=== PATIENT | female | born 1950 | race Caucasian/White ===

== ENCOUNTER → 2018-06-12 16:20 | Outpatient (CLI) | payer MEDICARE, BC, SELFPAY ==
--- NOTE | 2018-06-12 16:25 | RAD_ITS ---
STUDY: X-RAY - LUMBAR SPINE REASON FOR EXAM: Female, 67 years old. Low back pain with right leg numbness, no known injury TECHNIQUE: 5 view(s) of the lumbar spine were obtained. COMPARISON: None FINDINGS: Normal lumbar lordosis. There is no substantial scoliosis. There is a grade 2 anterolisthesis of L5 relative to S1. I cannot determine with certainty on this study the presence or absence of associated spondylolysis. There is endplate spondylosis of L4-S1. There is severe narrowing of the L4-5 and L5-S1 disc spaces, and moderately severe narrowing of the L2-3 and L3-4 disc spaces. The soft tissue structures are unremarkable. RAD/L/S Spine Min 4 Views IMPRESSION: Grade 2 anterolisthesis of L5 relative to S1. Other degenerative changes as detailed above. Electronically Signed: Boni Flores MD at 21:45 EDT , Service support ,
== END ==
PROVIDERS: Family Provider Family Medicine; PCP Family Medicine; Visit Provider Family Medicine
DX: M43.17 Spondylolisthesis, lumbosacral region (principal); M48.07 Spinal stenosis, lumbosacral region
CPT/HCPCS: 72110

== ENCOUNTER 2018-08-02 09:30 | Outpatient (RCR) | payer MEDICARE, BC, SELFPAY ==
--- NOTE | 2018-07-07 10:10 | HP.PTEVAL_ITS ---
Patient's Visit Information HILDA ALMEIDA is a 67 year old F referred to Physical Therapy by Janell Tamez MD with a diagnosis of R leg numbness. Date of Evaluation: 07/07/18 Physical Therapist: Elia Becker PT, - Visit Plan Frequency: 2x /Week Duration: 3 Weeks Plan: REIL, core strengthening, postural edu, and HEP - Subjective Subjective: Pt reports she has had R LE numbness for a couple years. Pt reports her pain has progressively worsened over the last 8-9 mos. Pt reports she did have xrays, which revealed bulging disks in her LB. Pt reports if she sits for any period of time, she has a difficult time with trying to bear nila on her R LE. Pt reports she has difficulty with traveling because her R LE becomes so sore. Pt reports she uses an inversion table and walks a lot secondary to her pain. Pt reports she has been treated by a chiropractor over the years and has been told she has a weak core. 2/10 at rest, 5/10 at worst - Pain R leg numbness Pain Intensity (Out of 10): 2 Pain Intensity Range: 5 - Objective Neuro: B LE sensation is WNL to light touch. B patellar reflex= 1/3. MMT: B LE' s are grossly 5/5 throughout. L/S ROM: Pt is minimally limited with L/S ext. All other movements WNL. Repeated movements: RFIS 10x2 increased LBP, NE after wards. FREEMAN NE. REIL makes pt feel better overall. flexibility: Mild limitations with piriformis. All others WNL - Goals Goal 1:: Decrease R LE radiculopathy x 50% to aid with increasing harsh for sitting Goal Time Frame: 2-4 Weeks Goal 2:: Increase core stability x 1 grade to aid with decreasing LBP Goal Time Frame: 2-4 Weeks Goal 3:: Pt will both verbally and physically display proper posture to aid with preventing future episodes of LBP Goal Time Frame: 2-4 Weeks Goal 4:: I with HEP Goal Time Frame: 2-4 Weeks - Rehabilitation Potential Physical Therapy Diagnosis: Pt has LBP, R LE radiculopathy, and core weakness secondary to L/S disk derrangement Rehabilitation Potential: Good - Anticipated Interventions Patient/Client Instruction: Educate patient on: Condition, Plan of Care For the Purpose of:: To improve self management Therapeutic Exercise to Include: Strength training, Endurance training, Body mechanics, Postural training, Flexibilty training, Dynamic Lumbar Stabilization For the Purpose of:: To decrease pain, To increase ROM, To improve muscle performance and motor function Thank you for the opportunity to evaluate your patient. For Medicare and Medicare HMO plans, please review the plan of care and approve it. It will need to be FAXED BACK to us at [phone] for Medicare purposes. Please let me know if there are questions or concerns regarding this plan of care. Physician Signature: Date:
--- NOTE | 2018-07-24 10:20 | HP.PTREVAL_ITS ---
Janell Tamez MD, It has been my pleasure to treat HILDA ALMEIDA over the last 5 visits for R leg numbness. Please see the progress note below for an update on the physical therapy plan of care! Subjective: PATIENT REPORTS SHE HAS TRIED [facility]GA 2X'S SINCE LAST VISIT AND SHE HAD PAIN EVEN WITH THE IVONNE POSE. SHE REPORTS SHE CAN TOLERATE HER LOW BACK PAIN BUT HER RIGHT LE IS THE MAIN PROBLEM. CURRENT SX'S: ALEXANDREA LOW BACK, RIGHT THIGH AND RIGHT LEG. PAIN, NUMBNESS AND TINGLING IN RIGHT THIGH AND LEG. RISING FROM SITTING AND INITIATING GAIT ARE A PROBLEM. OCCASSIONALLY MUSCLE CRAMPS IN THE NIGHT IN LLE BUT NO OTHER LLE SX'S. PATIENT REPORTS SHE REALLY ISN 'T ANY BETTER SINCE STARTING PT. 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 I THINK THE PUSH UPS MADE MY BACK HURT. HAS BEEN TOLD NOT TO BEND OVER AT THE WAIST BUT HAS NOT BEEN COMPLIANT. RIGHT LE SX'S HAVE BEEN CONSTANT TO SOME DEGREE FOR ABOUT 6 MONTHS NOW. TRIED ACCUPUNCTURE TOO BUT UNSURE OF EFFECT. Objective/Function: UPON EXAM, PATIENT HAS VERY ARTHRITIC HANDS AND ALSO REPORTS HER KNEES ARE ARTHRITIC. NO ACUTE TENDERNESS. LUMBAR MVMT LOSS: FLEX - NIL, EXT - MOD, ALEXANDREA SG - MODERATE. PATIENT C/O INCREASE LBP WITH ALEXANDREA SG TESTING. POSITIVE RIGHT LE DURAL SIGN. ALEXANDREA LE STRENGTH 5/5 WITH MMT'ING EXCEPT HIPS GRADED 4/5. DECREASED RIGHT LATERAL THIGH LIGHT TOUCH COMPARED TO LEFT. PATIENT DEMONSTRATED AND COMMUNICATED A GOOD UNDERSTANDING OF ALL INSTRUCTIONS AFTER GIVEN BUT REINFORCEMENT NEEDED. Plan Plan: US TO LUMBAR REGION, POSTURE CORRECTION/STRENGTHENING, INSTRUCTION IN APPROPRIATE BODY MECHANICS AND ACTIVITY MODIFICATIONS. DLS WITH A NEUTRAL SPINE. HOLD LUMBAR EXTENSION FOR NOW. ALEXANDREA LE ROM, STRETCHING AND STRENGTHENING. HEP INSTRUCTION. Goals Goal 1:: DECREASE C/O BACK AND LE SX'S. Goal Time Frame: 4-6 Weeks Goal 2:: IMPROVE RISING FROM SITTING, SITTING, LIFTING, HOUSEWORK, YARD WORK AND RECREATIONAL FUNCTION Goal Time Frame: 4-6 Weeks Goal 3:: INSTRUCT IN PROPHYLAXIS Goal Time Frame: 4-6 Weeks Goal 4:: I with HEP Goal Time Frame: 2-4 Weeks Anticipated Interventions Patient/Client Instruction: Educate patient on: Condition, Plan of Care For the Purpose of:: To improve self management Therapeutic Exercise to Include: Strength training, Endurance training, Body mechanics, Postural training, Flexibilty training, Dynamic Lumbar Stabilization For the Purpose of:: To decrease pain, To increase ROM, To improve muscle performance and motor function Please do not hesitate to contact me at [phone] by phone or Fax: if you have questions or concerns regarding this new plan of care! Sincerely, Charmaine Clemens
--- NOTE | 2018-09-25 10:04 | HP.PT.NRP ---
HP - Discharge Summary (1) - Patient Information HILDA ALMEIDA was seen in my office for initial evaluation on 07/07/18. The following Plan of Care was established for this patient: Initial Frequency: 2x /Week Initial Duration: 3 Weeks - Anticipated Interventions Patient/Client Instruction: Educate patient on: Condition, Plan of Care For the Purpose of:: To improve self management Therapeutic Exercise to Include: Strength training, Endurance training, Body mechanics, Postural training, Flexibilty training, Dynamic Lumbar Stabilization For the Purpose of:: To decrease pain, To increase ROM, To improve muscle performance and motor function This patient was last seen in our office . Pertinent comments regarding their Physical therapy will appear below: Pt was treated for 6 PT visits for her R leg numbness through the date of 08/02/18. Pt has not returned through todays date, and is therefore discontinued at this time. At this point I will be discontinuing this patient from physical therapy. I would be happy to see this patient again in the future if found appropriate by the physician. Thank you! Elia Becker, PT,
== END 2018-08-02 19:00 | disposition home or self-care (01) ==
LOC: PT 09:30
PROVIDERS: Family Provider Family Medicine; PCP Family Medicine; Visit Provider Family Medicine
DX: R20.0 Anesthesia of skin (principal)
CPT/HCPCS: 97035; 97110; 97140; 97162; 97164; 97530; G8978; G8979

== ENCOUNTER → 2018-08-04 15:53 | Outpatient (CLI) | payer MEDICARE, BC, SELFPAY | PROVIDERS: Family Provider Family Medicine; PCP Family Medicine; Visit Provider Family Medicine | DX: M43.17 Spondylolisthesis, lumbosacral region (principal); M48.07 Spinal stenosis, lumbosacral region | CPT/HCPCS: 72148 ==

== ENCOUNTER → 2018-11-01 09:19 | Outpatient (CLI) | payer MEDICARE, BC, SELFPAY ==
[2018-11-01 10:49] LABS: AST(SGOT) 14 U/L (15-37); Alanine Aminotransfer ALT/SGPT 25 U/L (13-56); CPK Total, Creatine Kinase 63 U/L (26-192); Cholesterol 170 mg/dL (200); High Density Lipoprotein 88 mg/dL; Triglycerides 67 mg/dL; Very Low Density Lipoprotein 13 mg/dL (5-40)
== END ==
PROVIDERS: Family Provider Family Medicine; PCP Family Medicine; Referring Provider Nurse Practitioner Adult Health; Visit Provider Nurse Practitioner Adult Health
DX: E78.5 Hyperlipidemia, unspecified (principal)
CPT/HCPCS: 36415; 80061; 82550; 84450; 84460

== ENCOUNTER → 2018-11-09 08:19 | Outpatient (CLI) | payer MEDICARE, BC, SELFPAY ==
--- NOTE | 2018-11-09 08:25 | BD_ITS ---
STUDY: DUAL ENERGY X-RAY ABSORPTIOMETRY / DXA REASON FOR EXAM: Female, 67 years old. The patient is postmenopausal. History of breast cancer. Loss of height. TECHNIQUE: Bone Mineral Density (BMD) measurements of lumbar spine and bilateral hips were obtained. COMPARISON: None. FINDINGS: Lumbar Spine (L1-L4): g/cm2 (1.048) / T-score (-1.0) / Z-score (0.6) Findings are suggestive of normal bone density with a low fracture risk. Left Femur Total: g/cm2 (0.906) / T-score (-0.8) / Z-score (0.4) Left Femoral Neck: g/cm2 (0.865) / T-score (-1.2) / Z-score (0.3) Right Femur Total: g/cm2 (0.921) / T-score (-0.7) / Z-score (0.5) Right Femoral Neck: g/cm2 (0.849) / T-score (-1.4) / Z-score (0.1) BD/Dexa Bone Density Study IMPRESSION: The patient is considered osteopenic as outlined below according to World [employer] Organization (WHO) criteria with a low fracture risk. Reference Information: The T-score is the number of standard deviations above or below the standard which is normal for young adults at their peak bone mineral density. The World Health Organization (WHO) interprets the T-scores as follows: Above -1 Normal bone density Between -1 and -2.5 Osteopenia Equal to / or below -2.5 Osteoporosis As a practical clinical guideline, osteopenia may be graded as follows: Mild -1 through -1.5 Moderate -1.6 through -2.0 Severe -2.1 through -2.4 The Z-score is the number of standard deviations above or below age-matched controls. A Z-score of less than -1.5 would be considered abnormal. References: 1. NIH Osteoporosis and Related Bone Diseases http://www.osteo.org 2. International Society for Clinical Densitometry http://www.iscd.org 3. National Osteoporosis Foundation http://www.nof.org Electronically Signed: Wm Vital MD at 10:04 EST Tel [phone], Service support ,
--- OUTSIDE RECORDS SUMMARY | 2018-12-26 01:20 | XMS RPT_ITS ---
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 Stroke: Father, severe stroke age 67, Blood Clot: None Heart attack: Father age 57 ; brother age 48 Thyroid Nodule or Goiter: None FAMILY HISTORY Problem Relation Age of Onset - Breast Cancer Mother age 76 thyroid lives in assisted living age 95 - Ischemic Heart Disease Father smoker age 88 - Stroke Father - Breast Cancer Maternal Grandmother - Heart Paternal Grandfather - Ischemic Heart Disease Brother age 48 - Heart Paternal Uncle - healthy [OTHER] Son ADD - healthy [OTHER] Daughter - healthy [OTHER] Son ADD - Breast Cancer Maternal Aunt - Breast Cancer Maternal Aunt - Heart Brother MEDICATIONS: COMPOUNDED PRESCRIPTION Use 1 Ryan vaginally once daily. DHEA OVULE 1.0% FOR NIGHTLY ADMINISTRATION VAGINALLY GET AT PHARMACY levothyroxine (SYNTHROID) 50 mcg tablet Take 1 tablet by mouth every morning. on an empty stomach. Wait one hour before eating or taking other medications. NICOLAS ROOT, BULK, MISC once daily. CALCIUM CITRATE ORAL Take by mouth once daily. Cholecalciferol, Vitamin D3, 2,000 unit cap Take 1 capsule by mouth once daily. MULTIVITAMIN W-MINERALS/LUTEIN (CENTRUM SILVER ORAL) Take by mouth once daily. aspirin, enteric coated (ECOTRIN LOW STRENGTH) 81 mg EC tablet Take 1 tablet by mouth once daily. amphet asp/amphet/d-amphet(ADDERALL 20 MG TAB) Take one(1) tablet three times daily. ALLERGIES: ALLERGIES No Known Allergies REVIEW OF SYSTEMS: The patient specifically denies unintentional weight loss, insomnia, hot flashes, night sweats, abnormal swelling in the arms or legs, chest pain, shortness of breath, cough, heartburn, urinary incontinence, vaginal dryness, decreased libido, unusual bony pains or severe headaches. 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 Trying accupuncture to see if helps. PHYSICAL EXAM: LMP 07/23/2008 General: well-nourished, healthy, thin, female, alert and oriented x 3, calm Skin: warm, dry, skin color, texture, turgor normal Head/Eyes: normocephalic, atraumatic and anicteric Breasts and Regional Lymph Nodes: The patient was examined in the upright and supine positions. There is no concerning supraclavicular, infraclavicular or axillary lymphadenopathy. The breasts are symmetrical in appearance without visible skin or nipple changes. There are no dominant breast masses or nipple discharge bilaterally. The breasts were non-tender. There was mild to moderate fibrocystic change throughout. IMAGING: Bilateral screening 3D mammograms performed today in the breast center were negative for malignancy. The breasts are heterogeneously dense which limits the sensitivity of mammography. Assessment IMPRESSION/PLAN: Hilda Mares is a 67 year old year old female with Bilateral Fibrocystic Change, Dense Breasts and Increased Risk for Breast Cancer due to LCIS/ALH There is no evidence of malignancy. The patient was reassured as to the benign nature of her clinical and mammographic findings. She was notified of the 3D results via My Chart. Her risk based on her ALH/LCIS history if estimated to be 30% over a 25 yr period. She is now 10 yrs out and took Tamoxifen for 4 yr 4 months. She knows that taking the Tamoxifen did help to reduce her risk for ER+ breast cancer but perhaps not the full 86% reduction it would have if she took for the a full 5 yrs. I have ordered a BMD test and we can discuss extending her breast cancer risk reduction with AI at the next visit (which if taken, she would tke for 3 yrs). At this point, she is on Medicare which does not cover screening breast MRI and going forward, MRI will be reserved in situations it is clinically indicated. She is comfortable with having annual exams with 3D mammograms at this time. Genetics referral made: no, Reason: BRCA negative, all her FH of breast cancer was in post menopausal women. Chemoprevention discussion: as above The patient is advised to exercise regularly, achieve/maintain ideal body weight, and to limit alcohol consumption to less than 7 drinks weekly for breast cancer risk reduction and overall health. She will contact [facility]YSICAL TESTING SUPERVISOR for her appt to have refill of the DHEA compounding supp. She will return in one year for annual exam and 3D mammogram. She will call me in the interim should she have any questions or concerns. Total face to face time was 30 minutes with >50% spent on counseling the patient or coordinating her care. Anil Dao, MSN SKEIN MERCERIZING MACHINE OPERATOR.[facility] Medical Breast Specialist June 15, 2018 CC: Janell Tamez MD ([facility]) [address] [facility] [address] [place] [address] LEATHAOV Observed: 06/15/2018 Status: COMPLETED Source: [place] 10:30 AM [facility] REPOSITORY Office Visit ([facility]) HILDA MARES ([id number]) 1950 F Date Time Provider Department 06/15/18 10:30 AM ANIL DAO (STOGY MAKER) [facility] During your visit today, we recorded the following information about you: Vignesh Espitia Ma 06/15/2018 11:37 AM Addendum General Breast Health Recommendations A healthy body helps promote healthy breasts. If you smoke, please consider a smoking cessation program. If you do not exercise, please consider starting an exercise program if you are able to, even if it is just walking in your neighborhood. Research shows that obesity, especially post- menopausal obesity, is a risk factor for breast cancer. Obtaining calcium in your diet or taking a calcium supplement that contains vitamin D is good for your bones. There is evolving evidence that Vitamin D supplementation may also help to decrease breast cancer risk. If you are post-menopausal and are bothered by hot flashes and still have a uterus, combined estrogen-progesterone preparations can increase your risk of breast cancer if taken for longer than five years. Alcohol is also an under-recognized risk factor. Every drink you have daily increases your breast cancer risk by 10%. Mammograms save lives. Have an annual mammogram annually beginning at age 40. Continue annual mammograms as long as you remain in good health. Breast self-exam, performed on day 7 of your menstrual cycle, can also be very helpful. Know your breasts and report changes to your health care provider or breast specialist. Clinical breast exams by your primary care provider or breast specialist are recommended annually every 1-3 years for women over the age of 20 and annually after the age of 40. Increased frequency of the clinical exam may be recommended for women at increased risk of breast cancer. Risk factors for breast cancer: Being a woman Family history of breast cancer Early menarche (onset of menses) prior to age 15 Nulliparity (never had children) First child after age 32 Late menopause (stopping of periods) after age 57 History of breast biopsy that showed atypical cells (ADH, ALH, LCIS, FEA) Presence of a genetic mutation (BRCA1, BRCA2, PTEN, P53, CDH1) History of chest wall irradiation (such as with Hodgkin's Lymphoma) prior to age 30 Personal history of breast cancer Post-menopausal Obesity Combined hormone therapy (estrogen and progesterone) for greater than 5 years Alcohol consumption of greater than 7 alcohol-containing drinks per week Breast density If you have a family history of breast or ovarian cancer, review this with your primary care provider or breast specialist to see if a referral for genetic counseling is recommended. 5-10% of breast cancers and up to 15% of ovarian cancers are linked to a genetic mutation. Signs of hereditary breast cancer syndrome include breast cancer that occurs under the age of 50, ovarian cancer at any age, male breast cancer, multiple family members affected with breast cancer, and a history of Ashkenazi Restoration ancestry. Breast pain is very common and usually is not a sign of cancer, but should be evaluated by a breast specialist. For comfort, simply reducing caffeine (coffee, tea, chocolate, energy drinks, sodas) in your diet can provide relief. A properly fitted bra can also be helpful in reducing breast pain. If those two measures do not provide relief, taking Evening [place] Oil 1000mg capsules twice a day for a short period of time (three to four months) may be helpful. Many women wonder about their breast density. Dense breast tissue is, in and of itself, a relatively common condition which could hide abnormalities in a screening mammogram. This information is not provided to cause undue concern; rather, it is to raise your awareness and promote discussion with your health care provider regarding the presence of dense breast tissue in addition to other risk factors. If you would like to compliment one of our caregivers you encountered today, you may do so at [email or web address]. Thank you ! BONE MINERAL DENSITY PATIENT INSTRUCTIONS Bone mineral density testing measures the amount of calcium in certain parts of your bones. This information determines how strong your bones are. The test is used to detect osteoporosis, a disease in which the bone's mineral content and density are low, increasing a person's risk of fractures. The lumbar spine (lower back) and the hip are the skeletal sites usually examined. For the test, remember that: 1. You cannot take this test if you are . 2. Eat a normal diet on the day of the test. 3. Take your medications as you normally would. 4. DO NOT take calcium supplements (such as Tums) for 24 hours before the test. 5. On the day of the test, leave valuables (jewelry or credit cards) at home. 6. The test should be performed prior to oral, rectal or IV contrast studies, or at least 7 days after any of these studies. For the test, you may be asked to wear a hospital gown. You will lie on your back, on a padded table, in a comfortable position. Generally, you can resume your usual activities immediately. Vignesh Espitia Ma 06/15/2018 11:04 AM Signed Last mammogram on: 06/16/2017 Left breast Results: see report Is the patient active on Mdundohart Yes Electronically Signed By: Vignesh Espitia Ma In Department: BREAST CENTER REVIEW OF PATIENT HISTORY: Obstetric History T3 L3 SAB0 TAB0 Ectopic0 Multiple0 Live Births0 Comment: menarche 15 FFTP 33 breastfed hx of LCIS was on WILHELM FAMILY HISTORY Problem Relation Age of Onset - Breast Cancer Mother age 76 thyroid lives in assisted living age 95 - Ischemic Heart Disease Father smoker age 88 - Stroke Father - Breast Cancer Maternal Grandmother - Heart Paternal Grandfather - Ischemic Heart Disease Brother age 48 - Heart Paternal Uncle - healthy [OTHER] Son ADD - healthy [OTHER] Daughter - healthy [OTHER] Son ADD - Breast Cancer Maternal Aunt - Breast Cancer Maternal Aunt - Heart Brother PAST MEDICAL HISTORY Diagnosis Date - ADD (attention deficit disorder) on adderal - BRCA negative 2007 - Breast neoplasm, Tis (LCIS) 2006 pre-cancerous (not cancer) high risk lesion took WILHELM [id number] - Female stress incontinence 09/2016 discussed 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 AMA - hx of low vitamin D 01/2013 19 needs tx recheck 04/2013 nl - LCIS Breast cancer- LCIS- bilateral - menopause age 57 2007 - menopause age 57 06/2008 - Papanicolaou smear of cervix with atypical squamous cells of undetermined significance (ASC-US) 09/2012 - PMS (premenstrual syndrome) in her 40s placed on celexa - Postmenopausal atrophic vaginitis 01/2013 offered vaginal DHEA - Postmenopausal bleeding 11/2007 simple endometrial hyperplasia with polyp 04/2013 ebx proliferative PAST SURGICAL HISTORY Procedure Laterality Date - BX BREAST PERC VACUUM/ROTN 03/20/08 U/S mammotome UIQ left breast bx - DELIVERY ONLY 1990 , low cervical 10 lb son - COLONOSCOP W/ OR W/O BRSH SPEC 2010 Colonoscopy - HYSTEROSCOPY, DIAGNOSTIC (SEPARATE 12/12/2012 Hysteroscopy - HYSTEROSCOPY, DIAGNOSTIC (SEPARATE 07/[address] Estrella CRAVEN - PAST SURGICAL HISTORY OF wisdom teeth - US BREAST NEEDLE CORE BIOPSY LT 05/09/09 U/S needle core upper mid left breast Social History Marital status: Spouse name: Maria Dolores Years of education: 16 Number of children: 3 Occupational History Occupation Employer Comment [employer] Social History Main Topics Smoking status: Former Smoker Packs/day: 0.50 Years: 5.00 Smokeless tobacco: Never Used Alcohol use: Yes 3.0 oz/week Glasses of Wine (5oz): 2 per week Comment: 1 glass/day Drug use: No Sexual activity: Yes Partners with: Male Comment: Postmenopausal Anil Dao, MSN SKEIN MERCERIZING MACHINE OPERATOR.WATER POLLUTION CONTROL TECHNICIAN 06/15/2018 12:59 PM Signed MEDICAL BREAST PATIENT NAME: Hilda Mares June 15, 2018 HISTORY of PRESENT ILLNESS: 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 I last saw her in 06/13. Her 3D screening mammogram showed a possible asymmetry in the left breast at 12:00 anterior depth. She returned for diagnostic imaging 06/13 including diagnostic VALERIO and the possible asymmetry was no longer seen. Annual screening mammogram was recommended. MRI in 05/14 was negative. Prior to the MRI she was feeling some intermittent left sided breast pain x 2 mo which lessened after finding out the MRI was negative. The patient denies any new breast masses, pain, skin changes, or nipple discharge. Vitamin D 25 Hydroxy (ng/mL) Date Value 05/24/2013 78.4 She takes Vitamin D 2000 units daily and calcium. BMD: years ago OSH in [place] PERSONAL BREAST HISTORY: Past breast history (prior to this encounter) is as follows: In 02/02 she had a left stereotactic biopsy which showed LCIS. No additional surgery was performed. In 2008, at , patient underwent another LEFT breast needle biopsy revealing LCIS and underwent LEFT breast wire localized excisional biopsy in 2009 of [address] Goel at . Pathology reports multiple foci of ALH and LCIS in one specimen and fibroadenoma in the other. She took Tamoxifen from 06/19/08 till 10/24/12 (Dr. Agrawal) for the hx of high risk lesions and it was stopped when she developed the PMB. ? She developed PMB in 10/09. 10/09 EMB at [facility] which was benign. 12/10 had hysteroscopy for more PMB and which showed two uterine polyps with atypia. 02/07 she started progesterone and DHEA per Dr. Barth in 02/07. 05/10 EMB ([facility]) showed focally crowded endometrial glands with focal squamous morule; origin from endometrial hyperplasia could not be excluded. 08/10 and 03/11 she had two more EMB (Dr. De La Rosa) which were both benign. Patient had considered a KLEVER but did not schedule. She went to her local PHYSICAL TESTING SUPERVISOR in [place] 04/12 for PAP which she reports was fine. She saw PHYSICAL TESTING SUPERVISOR (Caryl Bains in 05/14). She has not had any return of the uterine bleeding. Breast biopsy: Yes, as above Breast cysts: No Breast surgery: Yes, as above Breast cancer: No CANCER SURVEILLANCE: Mammograms: 06/13 as above Breast MRI: 05/14 negative [place]oscopy[place]/11 [place] ([facility] per her report RISK FACTORS FOR BREAST CANCER: Age at the onset of menses: 16 years of age. P: 3 Age at the of first child: 33 years of age. She breast fed for 24 months total Age at menopause: 59 years of age. Post-menopausal hormone therapy: No; DHEA vaginal supp only (Caryl Bains) She has an intact uterus and ovaries She is postmenopausal and does not use control. 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 AMA - hx of low vitamin D 01/2013 19 needs tx recheck 04/2013 nl - LCIS Breast cancer- LCIS- bilateral - menopause age 57 2007 - menopause age 57 06/2008 - Papanicolaou smear of cervix with atypical squamous cells of undetermined significance (ASC-US) 09/2012 - PMS (premenstrual syndrome) in her 40s placed on celexa - Postmenopausal atrophic vaginitis 01/2013 offered vaginal DHEA - Postmenopausal bleeding 11/2007 simple endometrial hyperplasia with polyp 04/2013 ebx proliferative Patient specifically denies history of: DVT, PE, Migraine headaches, Abnormal uterine biopsies , Osteopenia and Osteoporosis. PAST SURGICAL HISTORY: PAST SURGICAL HISTORY Procedure Laterality Date - BX BREAST PERC VACUUM/ROTN 03/20/08 U/S mammotome UIQ left breast bx - DELIVERY ONLY 1990 , low cervical 10 lb son - COLONOSCOP W/ OR W/O BRS SPEC 2010 Colonoscopy - HYSTEROSCOPY, DIAGNOSTIC (SEPARATE 12/12/2012 Hysteroscopy - HYSTEROSCOPY, DIAGNOSTIC (SEPARATE 07/[address] Estrella CRAVEN - PAST SURGICAL HISTORY OF wisdom teeth - BREAST NEEDLE CORE BIOPSY LT 05/09/09 U/S needle core upper mid left breast SOCIAL HISTORY: Social History Substance Use Topics - Smoking status: Former Smoker Packs/day: 0.50 Years: 5.00 - Smokeless tobacco: Never Used - Alcohol use 3.0 oz/week 2 Glasses of Wine (5oz) per week Comment: 1 glass/day Caffeine intake: 1-2 c coffee / day - no diet soda Exercise: 30 minutes/5 times a week or more FAMILY HISTORY: Family history of breast cancer: Her mother had breast cancer in her 70s, had bilateral mastectomies and is alive with dementia at age 97 in assisted living. Two maternal aunts had breast cancer in their 70s as well. MGM was age 60. Family history of ovarian cancer: None Number of sisters: 1 Number of maternal aunts: 2 Number of paternal aunts: 0 Ashkenazi Ancestry: no Has Patient had Genetic Testing? Yes , Type of testing BRCA negative in 11/04 Have any Family Members had Genetic Testing? No Other Cancer: None - There is no family history of prostate, colon, uterine, pancreatic, gastric, brain, renal cell or thyroid cancer. - There is no family history of melanoma, sarcoma or leukemia. Osteoporosis: None Stroke: Father, severe stroke age 67, Blood Clot: None Heart attack: Father age 57 ; brother age 48 Thyroid Nodule or Goiter: None FAMILY HISTORY Problem Relation Age of Onset - Breast Cancer Mother age 76 thyroid lives in assisted living age 95 - Ischemic Heart Disease Father smoker age 88 - Stroke Father - Breast Cancer Maternal Grandmother - Heart Paternal Grandfather - Ischemic Heart Disease Brother age 48 - Heart Paternal Uncle - healthy [OTHER] Son ADD - healthy [OTHER] Daughter - healthy [OTHER] Son ADD - Breast Cancer Maternal Aunt - Breast Cancer Maternal Aunt - Heart Brother MEDICATIONS: COMPOUNDED PRESCRIPTION Use 1 Ryan vaginally once daily. DHEA OVULE 1.0% FOR NIGHTLY ADMINISTRATION VAGINALLY GET AT PHARMACY levothyroxine (SYNTHROID) 50 mcg tablet Take 1 tablet by mouth every morning. on an empty stomach. Wait one hour before eating or taking other medications. NICOLAS ROOT, BULK, MISC once daily. CALCIUM CITRATE ORAL Take by mouth once daily. Cholecalciferol, Vitamin D3, 2,000 unit cap Take 1 capsule by mouth once daily. MULTIVITAMIN W-MINERALS/LUTEIN (CENTRUM SILVER ORAL) Take by mouth once daily. aspirin, enteric coated (ECOTRIN LOW STRENGTH) 81 mg EC tablet Take 1 tablet by mouth once daily. amphet asp/amphet/d-amphet(ADDERALL 20 MG TAB) Take one(1) tablet three times daily. ALLERGIES: ALLERGIES No Known Allergies REVIEW OF SYSTEMS: The patient specifically denies unintentional weight loss, insomnia, hot flashes, night sweats, abnormal swelling in the arms or legs, chest pain, shortness of breath, cough, heartburn, urinary incontinence, vaginal dryness, decreased libido, unusual bony pains or severe headaches. 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 Trying accupuncture to see if helps. PHYSICAL EXAM: LMP 07/23/2008 General: well-nourished, healthy, thin, female, alert and oriented x 3, calm Skin: warm, dry, skin color, texture, turgor normal Head/Eyes: normocephalic, atraumatic and anicteric Breasts and Regional Lymph Nodes: The patient was examined in the upright and supine positions. There is no concerning supraclavicular, infraclavicular or axillary lymphadenopathy. The breasts are symmetrical in appearance without visible skin or nipple changes. There are no dominant breast masses or nipple discharge bilaterally. The breasts were non-tender. There was mild to moderate fibrocystic change throughout. IMAGING: Bilateral screening 3D mammograms performed today in the breast center were negative for malignancy. The breasts are heterogeneously dense which limits the sensitivity of mammography. Assessment IMPRESSION/PLAN: Hilda Mares is a 67 year old year old female with Bilateral Fibrocystic Change, Dense Breasts and Increased Risk for Breast Cancer due to LCIS/ALH There is no evidence of malignancy. The patient was reassured as to the benign nature of her clinical and mammographic findings. She was notified of the 3D results via My Chart. Her risk based on her ALH/LCIS history if estimated to be 30% over a 25 yr period. She is now 10 yrs out and took Tamoxifen for 4 yr 4 months. She knows that taking the Tamoxifen did help to reduce her risk for ER+ breast cancer but perhaps not the full 86% reduction it would have if she took for the a full 5 yrs. I have ordered a BMD test and we can discuss extending her breast cancer risk reduction with AI at the next visit (which if taken, she would tke for 3 yrs). At this point, she is on Medicare which does not cover screening breast MRI and going forward, MRI will be reserved in situations it is clinically indicated. She is comfortable with having annual exams with 3D mammograms at this time. Genetics referral made: no, Reason: BRCA negative, all her FH of breast cancer was in post menopausal women. Chemoprevention discussion: as above The patient is advised to exercise regularly, achieve/maintain ideal body weight, and to limit alcohol consumption to less than 7 drinks weekly for breast cancer risk reduction and overall health. She will contact PHYSICAL TESTING SUPERVISOR for her appt to have refill of the DHEA compounding supp. She will return in one year for annual exam and 3D mammogram. She will call me in the interim should she have any questions or concerns. Total face to face time was 30 minutes with >50% spent on counseling the patient or coordinating her care. Anil Dao, MSN SKEIN MERCERIZING MACHINE OPERATOR.[facility] Medical Breast Specialist June 15, 2018 CC: Janell Tamez MD ([facility]) [address] [facility] [place] [id number] Referring Provider: SELF [[id number]] Allergies As of Date: 06/15/2018 (No Known Allergies) Date Reviewed: 06/15/2018 Reviewed by: Anil Doty ([place]) Joe - Fully Assessed Reason for Visit: Yearly Exam With Mammogram [188] Primary Visit Diagnosis:Atypical lobular hyperplasia of breast [N60.99] Other Visit Diagnoses:Lobular carcinoma in situ (LCIS) of left breast [D05.02] Bilateral fibrocystic breast changes [N60.11, N60.12] Family history of breast cancer in mother [Z80.3] hx of low vitamin D [E55.9] BRCA negative [Z13.71] Encounter for screening for osteoporosis [Z13.820] Disorder of bone [M89.9] Encounter for screening mammogram for breast cancer [Z12.31] Order(s):DXA-AXIAL SKELETON [8593839] Order #: [id number] FUTURE LAISHA SCREENING W VALERIO [4502210] Order #: [id number] FUTURE Prescriptions as of 06/15/2018 Sig: COMPOUNDED PRESCRIPTION Use 1 Ryan vaginally once d* LEVOTHYROXINE 50 MCG TABLET Take 1 tablet by mouth every * NICOLAS ROOT (BULK) MISC once daily. CALCIUM CITRATE ORAL Take by mouth once daily. CHOLECALCIFEROL (VITAMIN D3) * Take 1 capsule by mouth once * CENTRUM SILVER ORAL Take by mouth once daily. ASPIRIN 81 MG TABLET,DELAYED * Take 1 tablet by mouth once d* * ADDERALL 20 MG TABLET Take one(1) tablet three time* Problem List As Of Date 06/15/2018 Noted Resolved Abnormal mammogram, unspecified [R92.8] INVALID FOR*02/20/2013 LCIS [D05.90] INVALID FOR*09/28/2013 Simple endometrial hyperplasia [N85.01] INVALID FOR*09/28/2013 More... Papanicolaou smear of cervix with atypical squa* 10/19/2016 Postmenopausal atrophic vaginitis [N95.2] Postmenopausal bleeding [N95.0] 05/24/2013 hx of LCIS [C50.919] 08/30/2014 More... 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 If you smoke, please consider a smoking cessation program. If you do not exercise, please consider starting an exercise program if you are able to, even if it is just walking in your neighborhood. Research shows that obesity, especially post-menopausal obesity, is a risk factor for breast cancer. Obtaining calcium in your diet or taking a calcium supplement that contains vitamin D is good for your bones. There is evolving evidence that Vitamin D supplementation may also help to decrease breast cancer risk. If you are post-menopausal and are bothered by hot flashes and still have a uterus, combined estrogen-progesterone preparations can increase your risk of breast cancer if taken for longer than five years. Alcohol is also an under-recognized risk factor. Every drink you have daily increases your breast cancer risk by 10%. Mammograms save lives. Have an annual mammogram annually beginning at age 40. Continue annual mammograms as long as you remain in good health. Breast self-exam, performed on day 7 of your menstrual cycle, can also be very helpful. Know your breasts and report changes to your health care provider or breast specialist. Clinical breast exams by your primary care provider or breast specialist are recommended annually every 1-3 years for women over the age of 20 and annually after the age of 40. Increased frequency of the clinical exam may be recommended for women at increased risk of breast cancer. Risk factors for breast cancer: Being a woman Family history of breast cancer Early menarche (onset of menses) prior to age 15 Nulliparity (never had children) First child after age 32 Late menopause (stopping of periods) after age 57 History of breast biopsy that showed atypical cells (ADH, ALH, LCIS, FEA) Presence of a genetic mutation (BRCA1, BRCA2, PTEN, P53, CDH1) History of chest wall irradiation (such as with Hodgkin's Lymphoma) prior to age 30 Personal history of breast cancer Post-menopausal Obesity Combined hormone therapy (estrogen and progesterone) for greater than 5 years Alcohol consumption of greater than 7 alcohol-containing drinks per week Breast density If you have a family history of breast or ovarian cancer, review this with your primary care provider or breast specialist to see if a referral for genetic counseling is recommended. 5-10% of breast cancers and up to 15% of ovarian cancers are linked to a genetic mutation. Signs of hereditary breast cancer syndrome include breast cancer that occurs under the age of 50, ovarian cancer at any age, male breast cancer, multiple family members affected with breast cancer, and a history of Ashkenazi Restoration ancestry. Breast pain is very common and usually is not a sign of cancer, but should be evaluated by a breast specialist. For comfort, simply reducing caffeine (coffee, tea, chocolate, energy drinks, sodas) in your diet can provide relief. A properly fitted bra can also be helpful in reducing breast pain. If those two measures do not provide relief, taking Evening [place] Oil 1000mg capsules twice a day for a short period of time (three to four months) may be helpful. Many women wonder about their breast density. Dense breast tissue is, in and of itself, a relatively common condition which could hide abnormalities in a screening mammogram. This information is not provided to cause undue concern; rather, it is to raise your awareness and promote discussion with your health care provider regarding the presence of dense breast tissue in addition to other risk factors. If you would like to compliment one of our caregivers you encountered today, you may do so at [email or web address]. Thank you ! BONE MINERAL DENSITY PATIENT INSTRUCTIONS Bone mineral density testing measures the amount of calcium in certain parts of your bones. This information determines how strong your bones are. The test is used to detect osteoporosis, a disease in which the bone's mineral content and density are low, increasing a person's risk of fractures. The lumbar spine (lower back) and the hip are the skeletal sites usually examined. For the test, remember that: 1. You cannot take this test if you are . 2. Eat a normal diet on the day of the test. 3. Take your medications as you normally would. 4. DO NOT take calcium supplements (such as Tums) for 24 hours before the test. 5. On the day of the test, leave valuables (jewelry or credit cards) at home. 6. The test should be performed prior to oral, rectal or IV contrast studies, or at least 7 days after any of these studies. For the test, you may be asked to wear a hospital gown. You will lie on your back, on a padded table, in a comfortable position. Generally, you can resume your usual activities immediately. Visit Notes: >> Vignesh Espitia Ma Melany Jun 15, 2018 11:02 AM Status: Signed Last mammogram on: 06/16/2017 Left breast Results: see report Is the patient active on MyChart Yes Electronically Signed By: Vignesh Espitia Ma In Department: BREAST CENTER REVIEW OF PATIENT HISTORY: Obstetric History T3 L3 SAB0 TAB0 Ectopic0 Multiple0 Live Births0 Comment: menarche 15 FFTP 31 breastfed hx of LCIS was on [facility] FAMILY HISTORY Problem Relation Age of Onset - Breast Cancer Mother age 76 thyroid lives in assisted living age 95 - Ischemic Heart Disease Father smoker age 88 - Stroke Father - Breast Cancer Maternal Grandmother - Heart Paternal Grandfather - Ischemic Heart Disease Brother age 48 - Heart Paternal Uncle - healthy [OTHER] Son ADD - healthy [OTHER] Daughter - healthy [OTHER] Son ADD - Breast Cancer Maternal Aunt - Breast Cancer Maternal Aunt - Heart Brother PAST MEDICAL HISTORY Diagnosis Date - ADD (attention deficit disorder) on adderal - BRCA negative 2007 - Breast neoplasm, Tis (LCIS) 2005 pre-cancerous (not cancer) high risk lesion took WILHELM [id number] - Female stress incontinence 09/2016 discussed 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 AMA - hx of low vitamin D 01/2013 19 needs tx recheck 04/2013 nl - LCIS Breast cancer- LCIS- bilateral - menopause age 57 2007 - menopause age 57 06/2008 - Papanicolaou smear of cervix with atypical squamous cells of undetermined significance (ASC-US) 09/2012 - PMS (premenstrual syndrome) in her 40s placed on celexa - Postmenopausal atrophic vaginitis 01/2013 offered vaginal DHEA - Postmenopausal bleeding 11/2007 simple endometrial hyperplasia with polyp 04/2013 ebx proliferative PAST SURGICAL HISTORY Procedure Laterality Date - BX BREAST PERC VACUUM/ROTN 03/20/08 U/S mammotome UIQ left breast bx - DELIVERY ONLY 1990 , low cervical 10 lb son - COLONOSCOP W/ OR W/O BRSH SPEC 2010 Colonoscopy - HYSTEROSCOPY, DIAGNOSTIC (SEPARATE 12/12/2012 Hysteroscopy - HYSTEROSCOPY, DIAGNOSTIC (SEPARATE 07/[address] Estrella CRAVEN - PAST SURGICAL HISTORY OF wisdom teeth - US BREAST NEEDLE CORE BIOPSY LT 05/09/09 U/S needle core upper mid left breast Social History Marital status: Spouse name: Maria Dolores Years of education: 16 Number of children: 3 Occupational History Occupation Employer Comment [employer] Social History Main Topics Smoking status: Former Smoker Packs/day: 0.50 Years: 5.00 Smokeless tobacco: Never Used Alcohol use: Yes 3.0 oz/week Glasses of Wine (5oz): 2 per week Comment: 1 glass/day Drug use: No Sexual activity: Yes Partners with: Male Comment: Postmenopausal Disposition: Return in about 1 year (around 06/15/2019) for annual exam and mammogram . Follow-up and Disposition History Recorded Encounter Status:Closed by ANIL DAO CNP on 06/15/18 L/S SPINE MIN 4 Observed: 06/12/2018 Status: F Source: [place] VIEWS 4:25 PM [facility]POS[facility] Imaging Services [address] [place] [id number] L/S Spine Min 4 Views MR#: [id number] Acct: [id number] Name: HILDA MARES Tommie Rep #: [id number] : 1950 F 67 From: Boni Flores MD PCP: Janell Tamez MD Status: REG CLI Study: L/S Spine Min 4 Views Date of Exam: 06/12/18 Exam# [id number] Ordering Dr: Janell Tamez MD STUDY: X-RAY - LUMBAR SPINE REASON FOR EXAM: Female, 67 years old. Low back pain with right leg numbness, no known injury TECHNIQUE: 5 view(s) of the lumbar spine were obtained. COMPARISON: None FINDINGS: Normal lumbar lordosis. There is no substantial scoliosis. There is a grade 2 anterolisthesis of L5 relative to S1. I cannot determine with certainty on this study the presence or absence of associated spondylolysis. There is endplate spondylosis of L4-S1. There is severe narrowing of the L4-5 and L5-S1 disc spaces, and moderately severe narrowing of the L2-3 and L3-4 disc spaces. The soft tissue structures are unremarkable. RAD/L/S Spine Min 4 Views IMPRESSION: Grade 2 anterolisthesis of L5 relative to S1. Other degenerative changes as detailed above. Electronically Signed: Boni Flores MD at 21:45 EDT , Service support , CC: Janell Tamez MD Ad Copy Writer: Signed BASIC METABOLIC Collected: 12/21/2017 Status: F Source: ANA PROFILE (BMP) 10:59 AM [facility] REPOSITORY Order Comment: Order Date: 09/20/17 Order Info: [id number] - BMP Order Info: [id number] - LIPID Order Info: [id number] - TSH TYPE CODE TESTS RESULT OUT OF RANGE REFERENCE UNITS LAB L501.0100 70-110 mg/dL Normal GLU 102 LAB L501.1000 7-18 mg/dL Normal BUN 12 LAB L501.1100 0.55-1.02 mg/dL Normal 0.63 CREAT,SERUM Result Comment: The validity of the calculated GFR AND GFRAA in patients over 70 years has not been determined. Clinical correlation is essential. LAB L501.1110 >60 mL/min Normal EST GFR 101 Result Comment: Non- GFR Calc LAB L501.1115 >60 mL/min Normal EST GFR - AA 122 Result Comment: GFR Calc LAB L501.1300 10-20 RATIO Normal BUN/CRE 19.0 LAB L501.2200 8.5-10.1 mg/dL CA Normal 9.0 LAB L501.5300 136-145 mmol/L NA Normal 141 LAB L501.5600 3.5-5.1 mmol/L K Normal 4.1 LAB L501.5900 98-107 mmol/L CL Normal 105 LAB L501.6100 21.0-32.0 mmol/L Normal CO2 29.0 LAB L501.6200 5-15 Normal GAP 7 Performed By: #### L500.2500, L500.4100, L501.9520 #### [facility] [address] [place], [place], [address] LIPID PROFILE Collected: 12/21/2017 Status: F Source: ANA 10:59 AM [facility] REPOSITORY Order Comment: Order Date: 09/20/17 Order Info: [id number] - BMP Order Info: [id number] - LIPID Order Info: [id number] - TSH TYPE CODE TESTS RESULT OUT OF RANGE REFERENCE UNITS LAB L501.4900 200 mg/dL High CHOL 254 Result Comment: <200 mg/dL Desirable 200-240 mg/dL Borderline >240 mg/dL High Risk LAB L501.5000 mg/dL Normal TRIG 125 Result Comment: The drugs N-Acetylcysteine and Metamizole may falsely depress this assay. Serum Triglycerides Reference Interval Normal <150 mg/dL Borderline high 150 - 199 mg/dL High 200 - 499 mg/dL Very High > or = 500 mg/dL LAB L501.6400 mg/dL Normal HDL 86 Result Comment: The drugs N-Acetylcysteine and Metamizole may falsely depress this assay. Reference Range HDL <40 mg/dL Low HDL Cholesterol HDL >or= 60 mg/dL High HDL Cholesterol LAB L501.6500 0-130 mg/dL High LDL 143 LAB L501.6600 5-40 mg/dL Normal VLDL 25 Performed By: #### L500.2500, L500.4100, L501.9520 #### [facility] [address] [place], [place], [address] THYROID STIM HORMONE Collected: 12/21/2017 Status: F Source: ANA (TSH) 10:59 AM [facility] REPOSITORY Order Comment: Order Date: 09/20/17 Order Info: [id number] - [facility] Order Info: [id number] - LIPID Order Info: [id number] - TSH TYPE CODE TESTS RESULT OUT OF RANGE REFERENCE UNITS LAB L501.9520 0.358-3.74 uIU/mL Normal TSH 3.73 Performed By: #### L500.2500, L500.4100, L501.9520 #### [facility] [address] [place], [place], [address] ALLERGIES ALLERGIES DATE TYPE / CODE NAME / CODE REACTION SEVERITY SOURCE Drug NO KNOWN [facility] Class/94373 ALLERGIES Main [place] 1003(SNOMED Repository CT) ENCOUNTERS ENCOUNTERS ADMIT/DISCHARGE ACCOUNT ADMITTING ENCOUNTER LOCATION SOURCE NUMBER CLASS 11/09/2018 [id number] [facility] ing:OPBD Repository 11/01/2018 [id number] [facility] ing:MTLAB Repository 08/04/2018 [id number] [facility] ing:MRI Repository 08/02/2018/08/02/[id number] ing:PT Repository 06/15/2018/06/15/[id number] Repository 06/15/2018 [id number] [facility] Repository 06/12/2018 [id number] [facility] ing:MTRAD Repository 12/21/2017 [id number] [facility] ing:MTLAB Repository PAYERS PAYERS ENCOUNTER GUARANTOR PAYER SUBSCRIBER SOURCE 11/09/2018 HILDA Reilly Primary HILDA Nixoster [id number] Insurance:MEDICARE MCCORDDOB: [facility] [id number] Repository [id number]: [phone] [id number] [phone] () Date:2018-11-01 11/09/2018 Secondary HILDA E Ana Insurance:ANTHEMPolic MCCORDDOB: Community y Number: [id number] [facility] [id number] Repository Date:[id number] [address]WZ: 11/09/2018 Tertiary NOT GIVENUNK Ana Insurance:SELF PAY [facility] Number: Effective Repository Date:2018-11-01 11/01/2018 HILDA Reilly Primary HILDA E Ana [id number] Insurance:MEDICARE [id number] [place] Number: Repository [address]Agw: 330 [id number] [phone] (HP) Date:2018-11-01 11/01/2018 Secondary HILDA E Ana Insurance:ANTHEMPolic MCCORDDOB: Community y Number: [id number] Hospital [id number] Repository Date:6839-03-37[address], [place] [address]LU: 11/01/2018 Tertiary NOT GIVENUNK [place] Insurance:SELF PAY [facility] Number: Effective Repository Date:2018-11-01 08/04/2018 HILDA E Primary HILDA E Ana [id number] Insurance:MEDICARE MCCORDDOB: Community DIONICIO PART A [facility] [id number] [place] Number: Repository [address]Baf: 330 [id number] [phone] () Date:2018-08-03 08/04/2018 Secondary HILDA E Ana Insurance:ANTHEMPolic MCCORDDOB: Community y Number: [id number] Hospital [id number] Repository Date:[id number], [place] [address]UR: 08/04/2018 Tertiary NOT GIVENUNK [place] Insurance:SELF PAY [facility] Number: Effective Repository Date:2018-08-03 08/02/2018 HILDA E Primary HILDA E Ana [id number] Insurance:MEDICARE MCCORDDOB: Community DIONICIO PART A [id number] [place] Number: Repository [address]Sqg: 330 [id number] [phone] (HP) Date:2017-11-28 08/02/2018 Secondary HILDA E [place] Insurance:ANTHEMPolic MCCORDDOB: Community y Number: [id number] Hospital [id number] Repository Date:[id number], [place] [address]AP: 08/02/2018 Tertiary NOT GIVENUNK [place] Insurance:SELF PAY [facility] Number: Effective Repository Date:2018-07-05 06/12/2018 HILDA E Primary HILDA E Ana [id number] Insurance:MEDICARE MCCORDDOB: Community CONCORD PART A [facility] [id number] Number: Repository [address]Koz: [phone] [id number] [phone] (HP) Date:2018-06-12 06/12/2018 Secondary HILDA E Ana Insurance:ANTHEMPolic MCCORDDOB: Community y Number: [id number] Hospital [id number] Repository Date:7699-60-70[address] [address]WR: 06/12/2018 Tertiary NOT GIVENUNK [place] Insurance:SELF PAY [facility] Number: Effective Repository Date:2018-06-12 12/21/2017 HILDA E Primary HILDA E Ana [id number] Insurance:MEDICARE MCCORDDOB: Community CONCORD PART A [facility] [id number], Number: Repository [place] [address]Asi: [id number] Date:2017-12-21 () 12/21/2017 Secondary HILDA E [place] Insurance:ANTHEMPolic MCCORDDOB: Community y Number: [id number] Hospital [id number] Repository Date:0936-96-16[address] [address]QB: 12/21/2017 Tertiary NOT GIVENUNK [place] Insurance:SELF PAY [facility] Number: Effective Repository Date:2017-12-21
== END ==
PROVIDERS: Family Provider Family Medicine; PCP Family Medicine; Visit Provider Nurse Practitioner Adult Health
DX: Z78.0 Asymptomatic menopausal state (principal)
CPT/HCPCS: 77080

== ENCOUNTER → 2019-03-20 14:48 | Outpatient (CLI) | payer MEDICARE, BC, SELFPAY ==
[2019-03-20 17:50] LABS: Thyroid Stim Hormone (TSH) 6.02 uIU/mL (0.358-3.74)
[2019-03-20 18:18] LABS: Vitamin D,25 Hydroxy 16.5 ng/mL (29.95-100.01)
== END ==
PROVIDERS: Family Provider Family Medicine; PCP Family Medicine; Referring Provider Family Medicine; Visit Provider Nurse Practitioner Adult Health
DX: E03.9 Hypothyroidism, unspecified (principal); E55.9 Vitamin D deficiency, unspecified
CPT/HCPCS: 36415; 82306; 84443

== ENCOUNTER → 2019-05-28 14:55 | Outpatient (CLI) | payer MEDICARE, BC, SELFPAY ==
[2019-05-28 17:41] LABS: Thyroid Stim Hormone (TSH) 2.31 uIU/mL (0.358-3.74)
== END ==
PROVIDERS: Family Provider Family Medicine; PCP Family Medicine; Referring Provider Family Medicine; Visit Provider Family Medicine
DX: E03.9 Hypothyroidism, unspecified (principal)
CPT/HCPCS: 36415; 84443